=== PATIENT | male | born 1965 | race African-American/Black ===

== ENCOUNTER 2020-08-19 11:23 | Emergency (ER) | payer OTHER, SELFPAY ==
[2020-08-19 11:45] VITALS: BP 134/85; PULSE 77; RESP 18; TEMP 36.7; O2SAT 99; BMI 28.7
--- NOTE | 2020-08-19 12:19 | HMH.EDUTC ---
[facility] Disposition Clinical Impression: Exposure to COVID-19 virus, Viral syndrome Disposition: Home, Self-Care Condition on Discharge: Good Instructions: Preventing the Spread of Coronavirus Discharge Instructions Additional Instructions: Drink plenty of fluids. Take tylenol for pain or fever. Take the medications as directed. Follow up with your regular doctor. GO TO THE ER FOR ANY WORSENING SYMPTOMS Prescriptions: Azithromycin [Z-Jaziel 250mg Tab*] 250 mg PO UD DOSE PK #6 tab Transmission Status: Received by [facility]/pharmacy #[id number] Referrals: PCP,No [Primary Care Provider] - Forms: Work/School Release Time of Disposition: 12:22 Medical Decision Making - Medical Records Medical records reviewed: No: I reviewed the patient's medical records. - Hector Inquiry Pt receiving controlled substance: No Vital Signs: 08/19/20 11:45 08/19/20 12:26 Temperature 98.1 F 98.1 F Temperature Source Oral Pulse Rate 77 Pulse Rate [Right Brachial] 77 Respiratory Rate 18 18 Blood Pressure 134/85 Blood Pressure [Right Arm] 134/85 Blood Pressure Mean [Right Arm] 101 Blood Pressure Source [Right Arm] Automatic Cuff Blood Pressure Position [Right Arm] Sitting 02 Sat by Pulse Oximetry 99 Oxygen Delivery Method Room Air Orders (Tests/Meds): ORDERS Category Date Time Status Covid-19 Nasal PCR Sendout [facility] Routine Lab 08/19/20 11:50 Received [facility] HPI - General Stated complaint: Covid test Time Seen by Provider: 08/19/20 12:19 Mode of Arrival: Ambulatory Source of Information: Patient Limitations: No Limitations Description of Symptoms (Recalled from Triage Doc. by RN): PATIENT C/O HEADACHE, BODY ACHES, COUGH, FEVER, AND SNEEZING X 2 DAYS. DENIES ANY KNOWN DIRECT COVID EXPOSURE, BUT HE DOES WORK AT [employer] WHERE THERE HAVE BEEN POSITIVE CASES. HEENT Symptoms (Recalled from RN notes): Yes Resp Symptoms (Recalled from RN notes): Yes Skin Symptoms (Recalled from RN notes): No MS Symptoms (Recalled from RN notes): No Functional Status (Recalled from RN notes): WNL - History of Present Illness Provider Complaint: He states that for the past 2 days he has had a low grade fever, chills, head ache and dry cough. He works at the [employer]. - Related Data Previous Rx's Medication Instructions Recorded Azithromycin [Z-Jaziel 250mg Tab*] 250 mg PO UD DOSE PK #6 tab 08/19/20 Allergies Allergy/AdvReac Type Severity Reaction Status Date / Time No Known Allergies Allergy Verified 08/19/20 12:04 - Worker's Comp Is this a Worker's Comp case?: No [facility] History - Hepatitis A Screen Drug use history?: No High risk sexual behaviors?: No History of sexually transmitted infection?: No Currently employed?: No Childcare worker?: No Do you have indoor plumbing?: Yes Do you have electricity?: Yes Attestation statement:: This patient has been screened for Hepatitis A risk factors. I have reviewed the patient's past medical history: Yes - Social History Alcohol Intake: never Occupational Status: other ROS Obtained: Yes All systems reviewed & no additional complaints - Constitutional Constitutional: Reports system reviewed and no additional complaints, except as docu - Eyes Eyes: Reports system reviewed and no additional complaints, except as docu - ENT Ears, Nose, Mouth, and Throat: Reports system reviewed and no additional complaints, except as docu - Cardiovascular Cardiovascular: Reports system reviewed and no additional complaints, except as docu - Respiratory Respiratory: Yes system reviewed and no additional complaints, except as docu - Gastrointestinal Gastrointestingal: Reports: system reviewed and no additional complaints, except as docu Physical Exam - General General appearance: alert, in no apparent distress - Head Head exam: atraumatic, normocephalic, normal inspection - Eye Eye exam: Present: normal appearance, PERRL, EOMI - ENT ENT exam: Present
[2020-08-19 12:26] VITALS: BP 134/85; PULSE 77; RESP 18; TEMP 36.7; O2SAT 99
[2020-08-20 15:37] LABS: Covid-19 Nasal PCR Sendout Lex Not Detected
== END 2020-08-19 12:31 | disposition home or self-care (01) ==
PROVIDERS: Emergency Provider Nurse Practitioner Family
DX: Z20.828 Contact with and (suspected) exposure to other viral communicable diseases (principal); B34.9 Viral infection, unspecified
CPT/HCPCS: 99201; U0004

== ENCOUNTER → 2023-02-02 08:31 | Outpatient (CLI) | payer OTHER, SELFPAY ==
--- NOTE | 2023-02-02 08:44 | NM_ITS ---
FINAL REPORT CLINICAL HISTORY: RT KNEE PAIN,LT KNEE PAIN X 1 YEAR AFTER HIS KNEE SURGERIES GETTING KNEE XRAYS TODAY 8:50 AM 26.1 MCI TC MDP INJECTED INTO LT ANT COMPARISON: Correlation with plain knee radiographs dated 02/02/2023 FINDINGS: THREE-PHASE BONE SCAN PROCEDURE: The patient was injected with 26.1 mCi of technetium 99m MDP. Limited images of the bilateral knees were obtained in 3 phases. A marker was placed at the right knee. FINDINGS: There is slight increased blood flow in the left knee. Slight increased blood pool activity is seen at the left knee. There is increased tracer activity adjacent to the bilateral knee arthroplasties, left greater than right. This is of uncertain significance but favored to be reactive. IMPRESSION: Increased tracer activity bilaterally, left greater than right, of uncertain significance but favored to be reactive. If indicated, follow-up imaging may be helpful. Reviewed, Interpreted and Dictated by Christian Echeverria III, MD Transcribed by Cary Solomon Authenticated and . [facility]
--- NOTE | 2023-02-02 12:38 | XR_ITS ---
FINAL REPORT CLINICAL HISTORY: RT KNEE PAIN FINDINGS: Three views of the right knee reveal postoperative changes from total knee arthroplasty. There are small areas adjacent to the femoral component without convincing evidence of loosening. Soft tissue calcifications are noted. There is a small joint effusion. IMPRESSION: No convincing evidence of loosening. Small joint effusion. Reviewed, Interpreted and Dictated by Christian Echeverria III, MD Transcribed by Cary Solomon Authenticated and [facility]
--- NOTE | 2023-02-02 12:38 | XR_ITS ---
FINAL REPORT CLINICAL HISTORY: LT KNEE PAIN FINDINGS: Three views of the left knee reveal postoperative changes from total knee arthroplasty. There are small areas of lucency adjacent to the femoral and tibial components without convincing evidence of loosening. Soft tissue calcifications are noted. IMPRESSION: No convincing evidence of loosening. Reviewed, Interpreted and Dictated by Christian Echeverria III, MD Transcribed by Cary Solomon Authenticated and . [facility]
== END ==
PROVIDERS: PCP Emergency Medicine; Visit Provider Orthopaedic Surgery
DX: M25.562 Pain in left knee (principal); M25.561 Pain in right knee
CPT/HCPCS: 73560; 78315; A9503

== ENCOUNTER 2024-04-21 15:11 | Emergency (ER) | payer OTHER, SELFPAY ==
[2024-04-21 15:35] VITALS: BP 126/81; PULSE 75; RESP 19; TEMP 36.9; O2SAT 96; BMI 31.1
--- NOTE | 2024-04-21 15:50 | ED_ITS ---
Discharge Plan Disposition Patient Disposition: Home, Self-Care Condition: Good Prescriptions Prescriptions: New gentamicin 0.3 % drops 2 drp ophthalmic (eye) Q4H Qty: 10 0RF Rx Instructions: 2 drops right eye as directed Referrals Follow up/Referrals: Mickey Hernandez MD [Primary Care Provider] - See instructions Activity Restrictions/Add. Instructions Additional Instructions/Restrictions: Use eye drops as prescribed Follow up with your Eye Doctor if no improvement or any worsening of symptoms Follow up with your Family Doctor if needed Straight to ER if any life threatening symptoms Clinical Impressions Clinical Impression: Conjunctivitis Qualifiers: Conjunctivitis type: unspecified Laterality: right Qualified Code(s): H10.9 - Unspecified conjunctivitis Instructions Patient Instructions: Conjunctivitis, DI for Conjunctivitis Discharge ED Provider: Cheli Lewis [facility] General Stated complaint: Right eye swollen with drainage Mode of Arrival: Ambulatory Source of Information: Patient Limitations: No Limitations Time Seen by Provider: 04/21/24 15:50 Description of Symptoms (Recalled from Triage Doc. by RN): PATIENT C/O DRAINAGE AND PAIN TO RIGHT EYE THAT STARTED YESTERDAY HEENT Symptoms (Recalled from RN notes): Yes Resp Symptoms (Recalled from RN notes): No Skin Symptoms (Recalled from RN notes): No MS Symptoms (Recalled from RN notes): No Functional Status (Recalled from RN notes): WNL History of Present Illness Provider Complaint: Patient states that he has been having irritation, drainage and matting to right eye since yesterday States he doesnt recall hurting eye and denies known injury or FB States that his eye just feels irritated and he was worried about an eye infection so he came in to get it checked Denies pain with blinking denies vision changes or light sensitivity or swelling Related Data Previous Rx's Medication Instructions Recorded gentamicin 0.3 % eye drops 2 drp ophthalmic (eye) Q4H #10 mL 04/21/24 Allergies Allergy/AdvReac Type Severity Reaction Status Date / Time No Known Allergies Allergy Verified 08/19/20 12:04 Worker's Comp Is this a Worker's Comp case?: No [facility] Disclaimer: The information contained in this section may have been updated after the patient was seen, as this information can be updated by other users. Social History Smoking Status: Unknown if ever smoked alcohol intake: never current occupational status: other Travel in the last 8 weeks: None ROS Obtained: Yes All systems reviewed & no additional complaints except as documented and Yes Systems reviewed as appropriate & no additional complaints except as documented Constitutional Constitutional: Reports system reviewed and no additional complaints, except as documented and Reports as per HPI Eyes Eyes: Reports system reviewed and no additional complaints, except as documented, Reports as per HPI, Denies blurry vision, Denies diplopia, Reports eye discharge, Reports irritation, Reports eye pain (eye feels irritated) and Denies tunnel vision Cardiovascular Cardiovascular: Reports system reviewed and no additional complaints, except as documented and Reports as per HPI Respiratory Respiratory: Reports system reviewed and no additional complaints, except as documented and Reports as per HPI Gastrointestinal Gastrointestingal: Reports system reviewed and no additional complaints, except as documented and as per HPI Musculoskeletal Musculoskeletal: Reports system reviewed and no additional complaints, except as documented and Reports as per HPI Physical Exam General General appearance: alert and in no apparent distress Eye Eye exam: Present conjunctival redness, discharge and other (matting in the am when he wakes up Denies vision changes or blurry vision); Absent periorbital swelling or periorbital tenderness ENT ENT exam: Present mucous membranes moist Respiratory Respiratory exam: Present normal lung sounds bilaterally; Absent respiratory distress or wheezes Cardiovascular Cardiovascular exam: Present regular rate, normal rhythm and normal heart sounds Neurological Exam Neurological exam: Present alert, oriented X3 and normal gait Medical Decision Making Hector Inquiry Pt receiving controlled substance: No Hector was queried for this patient: No Vital Signs: 04/21/24 15:35 Temperature 98.4 F Temperature Source Oral Pulse Rate [Left Brachial] 75 Respiratory Rate 19 Blood Pressure [Left Arm] 126/81 Blood Pressure Mean [Left Arm] 96 Blood Pressure Source [Left Arm] Automatic Cuff Blood Pressure Position [Left Arm] Sitting 02 Sat by Pulse Oximetry 96 Oxygen Delivery Method Room Air
[2024-04-21 16:09] VITALS: BP 126/81; PULSE 75; RESP 19; TEMP 36.9; O2SAT 96
== END 2024-04-21 16:12 | disposition home or self-care (01) ==
PROVIDERS: Emergency Provider Nurse Practitioner; PCP Emergency Medicine
DX: H10.31 Unspecified acute conjunctivitis, right eye (principal)
CPT/HCPCS: 99204; 99212; G0463